=== PATIENT | male | born 1950 | race African-American/Black ===

== ENCOUNTER 2024-03-12 14:30 | Emergency (ER) | payer MEDICAID | END 2024-03-12 15:58 | disposition home or self-care (01) | LOC: MADERS 14:30 | DX: S60.467A Insect bite (nonvenomous) of left little finger, initial encounter (principal); E11.9 Type 2 diabetes mellitus without complications; I10 Essential (primary) hypertension; K21.9 Gastro-esophageal reflux disease without esophagitis; Z79.899 Other long term (current) drug therapy; Z79.84 Long term (current) use of oral hypoglycemic drugs; Z79.4 Long term (current) use of insulin; W57.XXXA Bitten or stung by nonvenomous insect and other nonvenomous arthropods, initial encounter | CPT/HCPCS: 99282 ==